=== PATIENT | male | born 1985 | race Caucasian/White ===

== ENCOUNTER 2023-03-30 12:00 | Outpatient (CLI) | payer MEDICAID ==
[2023-03-30 18:16] LABS: BASOPHILS % (AUTO) 0.4 %; EOSINOPHILS # (AUTO) 0.1 10^3/uL (0.0-0.7); EOSINOPHILS % (AUTO) 1.1 %; HCT - HEMATOCRIT 46.8 % (42.0-52.0); HGB - HEMOGLOBIN 15.7 g/dL (14.0-18.0); LYMPHOCYTES % (AUTO) 18.9 %; MEAN CORPUSCULAR HEMOGLOBIN 30.3 pg (27.0-31.0); MEAN CORPUSCULAR HGB CONC 33.5 g/dL (32.0-36.0); MEAN CORPUSCULAR VOLUME 90.3 fL (80.0-94.0); MEAN PLATELET VOLUME 9.1 fL (7.4-11.4); NEUTROPHILS # (AUTO) 7.5 10^3/uL (1.5-6.6); NEUTROPHILS % (AUTO) 70.3 %; RED BLOOD COUNT 5.18 10^6/uL (4.70-6.10); RED CELL DISTRIBUTION WIDTH 12.9 % (12.0-15.0); WHITE BLOOD COUNT 10.6 x10^3/uL (4.8-10.8)
[2023-03-30 18:23] LABS: SLIDE REVIEW? Indicated
[2023-03-30 18:55] LABS: ALBUMIN 4.3 g/dL (3.2-5.5); ALBUMIN/GLOBULIN RATIO 1.4 (1.0-2.2); BILIRUBIN,TOTAL 0.4 mg/dL (0.2-1.0); CALCIUM 9.5 mg/dL (8.5-10.3); CREATININE 0.8 mg/dL (0.6-1.3); POTASSIUM 4.1 mmol/L (3.5-4.5); TOTAL PROTEIN 7.4 g/dL (6.4-8.9)
[2023-03-30 19:30] LABS: PLATELET MORPHOLOGY PLATELET CLUMPING (NORMAL)
[2023-03-30 19:31] LABS: PLATELET ESTIMATE, MANUAL NORMAL (130-450,000) (NORMAL)
== END 2023-03-30 12:15 | disposition home or self-care (01) ==
LOC: LAB.N 12:00
PROVIDERS: ATTEND Nurse Practitioner
DX: L03.116 Cellulitis of left lower limb (principal)
CPT/HCPCS: 36415; 80053; 85025; 85379

== ENCOUNTER 2023-08-12 17:01 | Emergency (ER) | payer MEDICAID ==
--- NOTE | 2023-08-12 19:09 | ED Physician Documentation ---
History of Present Illness - Stated complaint Stated Complaint: R ANKLE SWELLING - Chief complaint Chief Complaint: Ext Problem - History obtained from History obtained from: Patient - History of Present Illness Pain level max: 3 Pain level now: 3 - Additonal information Additional information: Patient is a 38-year-old male who presents to the emergency department complaining of swelling in the right lower extremity ongoing for the past several days. He does use IV methamphetamines. He also smokes tobacco. No pain. Improves with elevation, worse with walking. Has not had similar symptoms previously. No fevers. No chills. Patient states that he does walk several miles daily, does not recall any specific injury. Review of Systems Constitutional: denies: Fever, Chills Respiratory: denies: Cough GI: denies: Vomiting, Diarrhea Skin: denies: Rash Musculoskeletal: denies: Neck pain, Back pain Neurologic: denies: Headache PD PAST MEDICAL HISTORY - Past Medical History Cardiovascular: None Respiratory: None Endocrine/Autoimmune: None GI: None : None HEENT: None Psych: None, Other Musculoskeletal: None Derm: None - Past Surgical History Past Surgical History: No - Present Medications Home Medications: Ambulatory Orders Medication Instructions Recorded Confirmed cephALEXin [Keflex] 500 mg PO Q6H #28 cap 05/21/22 - Allergies Allergies/Adverse Reactions: Allergies Allergy/AdvReac Type Severity Reaction Status Date / Time Sulfa (Sulfonamide AdvReac Rash Verified 05/21/22 19:39 Antibiotics) sulfa AdvReac itching/ Uncoded 05/21/22 19:39 rash - Social History Does the pt smoke?: Yes Smoking Status: Current every day smoker Does the pt drink ETOH?: No Does the pt have substance abuse?: Yes - Immunizations Immunizations are current?: Yes - POLST Patient has POLST: No PD ED PE NORMAL - Vitals Vital signs reviewed: Yes - General General: Alert and oriented X 3, No acute distress - HEENT HEENT: Moist mucous membranes - Neck Neck: Supple, no meningeal sign - Derm Derm: Warm and dry - Extremities Extremities: Other (Mild swelling to the right ankle, especially the lateral a spect. No erythema. No crepitus. No calf tenderness or cord. Mild swelling to the dorsum of the right foot. Neurovascular intact. No bony tenderness over the lower extremity including foot and ankle.) - Neuro Neuro: Alert and oriented X 3 Results - Vitals Vitals: Vital Signs - 24 hr 08/12/23 08/12/23 17:13 21:16 Temperature 36.1 C L Heart Rate 90 88 Respiratory 16 18 Rate Blood Pressure 147/91 H 156/89 H O2 Saturation 100 98 Oxygen O2 Source Room air - Rads (name of study) Right ankle x-ray Relevant Findings:: Final report received, See rad report Right lower extremity duplex ultrasound Relevant Findings:: Final report received, See rad report PD Medical Decision Making - ED course Complexity details: reviewed results, re-evaluated patient, considered differential, d/w patient ED course: 38-year-old male presents to the emergency department with right ankle swelling. Does not recall any injury. X-ray and ultrasound are both consistent with possible ankle sprain. Placed in a gel splint for comfort. Declines any crutches or pain medication. No signs of infection. No evidence of septic joint. We will have him follow-up with his PCP for further care. No DVT on ult rasound. Patient counseled regarding signs and symptoms for which I believe and urgent re-evaluation would be necessary. Patient with good understanding of and agreement to plan and is comfortable going home at this time This document was made in part using voice recognition software. While efforts are made to proofread this document, sound alike and grammatical errors may occur. Departure - Departure Disposition: 01 Home, Self Care Clinical Impression: Right ankle sprain Qualifiers: Encounter type: initial encounter Involved ligament of ankle: unspecified ligament Qualified Code(s): S93.401A - Sprain of unspecified ligament of right ankle, initial encounter Condition: Good Instructions: ED Sprain Ankle W X Ray Follow-Up: [facility] [Provider Group] [facility] [Provider Group] [facility] [Provider Group] [facility] [Provider Group] Comments: I would recommend using the Aircast to help support your ankle until it is healed. Please elevate your leg whenever possible. It does appear that you have fluid near the outside of your ankle joint that is consistent with a sprain or potentially an overuse injury. There are no abnormalities such as a blood clot on ultrasound. There is no fracture on x-ray. Forms: PCP List Discharge Date/Time: 08/12/23 21:18
--- NOTE | 2023-08-12 19:50 | XRAY Report ---
PROCEDURE: Ankle 3 View RT INDICATIONS: R ankle swelling TECHNIQUE: 3 views of the ankle were acquired. COMPARISON: None. FINDINGS: Bones: No fractures or dislocations. Ankle mortise is normally aligned. Small plantar calcaneal sp ur. No suspicious bony lesions. Soft tissues: Swelling at the lateral malleolus. No tibiotalar joint effusion. Achilles tendon appe ars normal. IMPRESSION: No fracture demonstrated. Swelling at the lateral malleolus suggesting sprain. Consider follow-up radiographs in 10-14 days. Reviewed by: Vahid Andujar MD on 08/12/2023 7:49 PM PST Approved by: Vahid Andujar MD on 08/12/2023 7:49 PM PST Station ID: [id number]
--- NOTE | 2023-08-12 21:12 | Ultrasound Report ---
PROCEDURE: Duplex Ext Veins Right INDICATIONS: RLE swelling TECHNIQUE: Real-time imaging, as well as color and pulse Doppler interrogation, were performed of the lower extr emity deep veins from the inguinal ligament to the popliteal fossa. Attempted visualization of the ca lf veins was performed. COMPARISON: None. FINDINGS: The deep veins are normally compressible, and free of intraluminal thrombus. Color and pu lse Doppler demonstrate normal phasic intraluminal flow. There is normal augmentation response to di stal compression maneuver. Edema is noted. More focal fluid pockets in the region of the ankle measuring 2.6 x 1.4 cm and 2.1 x 2.1 cm, sterility indeterminate. Incidentally noted prominent right groin lymph nodes, measuring up to 1 cm in AP dimension. IMPRESSION: No deep venous thrombosis of the visualized lower extremity. Reviewed by: Wesley Doran MD on 08/12/2023 9:11 PM PST Approved by: Wesley Doran MD on 08/12/2023 9:11 PM PST Station ID: [id number]
[2023-08-12 21:25] VITALS: BP 156/89; O2SAT 98
== END 2023-08-12 21:18 | disposition home or self-care (01) ==
LOC: ED 17:01
DX: S93.401A Sprain of unspecified ligament of right ankle, initial encounter (principal); X58.XXXA Exposure to other specified factors, initial encounter; F17.200 Nicotine dependence, unspecified, uncomplicated
CPT/HCPCS: 99283; 99284

== ENCOUNTER 2023-09-27 19:04 | Emergency (ER) | payer MEDICAID ==
[2023-09-27 19:16] VITALS: BP 150/100; O2SAT 100
[2023-09-27] MEDS ORDERED: AMOX/CLAV 875 MG/125 MG TABLET PO STA (19:21)
[2023-09-27] MEDS ORDERED: BUFFERED LIDOCAINE 10 ML SYRINGE SUBQ STA (19:21)
--- NOTE | 2023-09-27 19:22 | ED Physician Documentation ---
History of Present Illness - Stated complaint Stated Complaint: MOUTH PX,L SIDE FACIAL SWELLING - Chief complaint Chief Complaint: Heent - History obtained from History obtained from: Patient - Additonal information Additional information: He broke a tooth couple of days ago and then put a temporary filling on it, and then subsequently it got very swollen and painful. No fevers. It has been years since he saw dentist. PD PAST MEDICAL HISTORY - Past Medical History Cardiovascular: None Respiratory: None Endocrine/Autoimmune: None GI: None : None HEENT: None Psych: None, Other Musculoskeletal: None Derm: None - Past Surgical History Past Surgical History: No - Present Medications Home Medications: Ambulatory Orders Medication Instructions Recorded Confirmed cephALEXin [Keflex] 500 mg PO Q6H #28 cap 05/21/22 Amox/Clav 875/125 [Augmentin] 1 each PO Q12H #20 tablet 09/27/23 Oxycodone HCl/Acetaminophen 1 - 2 each PO Q6H PRN #14 tablet 09/27/23 [Percocet 5-325 mg Tablet] - Allergies Allergies/Adverse Reactions: Allergies Allergy/AdvReac Type Severity Reaction Status Date / Time Sulfa (Sulfonamide AdvReac Rash Verified 05/21/22 19:39 Antibiotics) sulfa AdvReac itching/ Uncoded 05/21/22 19:39 rash - Social History Does the pt smoke?: Yes Smoking Status: Current every day smoker Does the pt drink ETOH?: No Does the pt have substance abuse?: Yes - Immunizations Immunizations are current?: Yes - POLST Patient has POLST: No PD ED PE NORMAL - Vitals Vital signs reviewed: Yes - General General: Alert and oriented X 3, No acute distress - HEENT HEENT: Other (Temporary filling and a cavity in the second to last left m andibular molar with overlying swelling and a possible buccal abscess. No sublingual edema or trismus.) - Neck Neck: Supple, no meningeal sign, No bony TTP - Neuro Neuro: Alert and oriented X 3 Results - Vitals Vitals: Vital Signs - 24 hr 09/27/23 19:09 Temperature 36.7 C Heart Rate 100 Respiratory 18 Rate Blood Pressure 150/100 H O2 Saturation 100 Oxygen O2 Source Room air Procedures - General procedure General procedure: After discussion he would like to go ahead with an attempted I&D of what is an apparent buccal abscess. The area was infiltrated locally with buffered lidocaine with good anesthesia and then an 18-gauge needle was inserted but there was no purulent return suggesting phlegmon as opposed to abscess. No sign of Prosper's angina at this time. Departure - Departure Disposition: 01 Home, Self Care Clinical Impression: Dental infection Condition: Good Record reviewed to determine appropriate education?: Yes Instructions: ED Dental Abscess Facial Cellulitis Follow-Up: [facility] [Physician No Access] - Prescriptions: Amox/Clav 875/125 [Augmentin] 1 each PO Q12H #20 tablet Oxycodone HCl/Acetaminophen [Percocet 5-325 mg Tablet] 1 - 2 each PO Q6H PRN #14 tablet PRN Reason: pain Comments: I sent your prescription electronically to [facility] in [place]. It is very important that you follow-up with a dentist. When it comes to dental problems like yours, the emergency department can only offer a short-term solution to your long-term problem. A couple of low cost options for dental care include: [facility] in [place], calls [phone] for an appointment Or [facility] in [place], call [phone] for an appointment. I am prescribing a short course of narcotic pain medication for you. These are potentially dangerous and addictive medications that should be used carefully. These medications may constipate you. Take an hanm-sfl-pzxvodl stool softener (docusate) twice daily with plenty of water while taking these medications. If y ou go 24 hours without a bowel movement, take [id number]-[id number] miralax, per package instructions. Do not drink or drive while taking these medications. If you received narcotic or sedating medications while in the emergency department, do not drive for 24 hours. Store this medication in a safe, secure place and out of reach of children. It is a violation of federal law to give or sell this medication to another person or to use in a manner other than prescribed. The ED will not refill narcotic prescriptions, including prescriptions lost or stolen. To dispose of unwanted medications: 1. [facility] provides a drop box for medication in pill form only (no liquids) 8:00 am to 4:30 p.m. Thursday-Thursday in the lobby of the [facility], [address] [place] [address]. Empty pills into ziplock bag before disposal. Call [phone] for information. 2.[employer] is a free service available to all [facility] residents. Go to [email or web address] Note that many narcotic pain relievers also contain Tylenol/acetaminophen. Please ensure that your total dose of acetaminophen from all sources does not exceed 3 g (3000 mg) per day. Forms: PCP List
[2023-09-27] MEDS ORDERED: oxyCODONE/ACET 5/325 Prepack 4 PO STA (19:26)
== END 2023-09-27 19:45 | disposition home or self-care (01) ==
LOC: ED 19:04
DX: K04.7 Periapical abscess without sinus (principal); F17.200 Nicotine dependence, unspecified, uncomplicated
CPT/HCPCS: 41800; 99282; 99283; A9270

== ENCOUNTER 2024-04-19 17:36 | Emergency (ER) | payer MEDICAID ==
[2024-04-19 18:35] VITALS: BP 152/87; O2SAT 99
--- NOTE | 2024-04-19 19:12 | ED Physician Documentation ---
PD HPI LOWER EXT INJURY - Stated complaint Stated Complaint: LT LEG PX - Chief complaint Chief Complaint: Ext Problem - Additional information Additional information: 39-year-old male presents emerged department for left lower extremity blister. Patient says that he originally noticed this about a week ago But the blister has gotten bigger and deeper. Patient denies any fevers or chills he does endorse and frequent methamphetamine injection and says that he knows he needs to quit but has not been able to. He is unsure if he has diabetes as he has not been established with a primary care provider in quite some time but says that his roommate has a glucometer and checks his blood sugar at home and it does read high over 200s frequently. PD PAST MEDICAL HISTORY - Past Medical History Cardiovascular: None Respiratory: None Endocrine/Autoimmune: None GI: None : None HEENT: None Psych: None, Other Musculoskeletal: None Derm: None - Past Surgical History Past Surgical History: No - Present Medications Home Medications: Ambulatory Orders Medication Instructions Recorded Confirmed No Known Home Medications 04/19/24 04/19/24 - Allergies Allergies/Adverse Reactions: Allergies Allergy/AdvReac Type Severity Reaction Status Date / Time Sulfa (Sulfonamide AdvReac Rash Verified 04/19/24 18:23 Antibiotics) sulfa AdvReac itching/ Uncoded 04/19/24 18:23 rash - Social History Does the pt smoke?: Yes Smoking Status: Current every day smoker Does the pt drink ETOH?: No Does the pt have substance abuse?: Yes Substance Use and Type: Meth - Immunizations Immunizations are current?: Yes - POLST Patient has POLST: No PD ED PE NORMAL - Vitals Vital signs reviewed: Yes - General General: Alert and oriented X 3, No acute distress, Well developed/nourished - Derm Derm: Other (two blisters to left calf, one appears superfical, the other more deep, no purulent drainage, no erythema) - Extremities Extremities: Other (bilateral non pitting edema mostly to right ankle) - Psych Psych: Normal mood, Normal affect Results - Vitals Vitals: Oxygen O2 Source Room air PD Medical Decision Making - ED course ED course: 39-year-old male presents emergency department for 2 blisters to his left calf. Patient does endorse and daily frequent IV methamphetamine. Patient says he also has been having bilateral lower extremity swelling he has already had a venous duplex on his right lower extremity there was no DVT. He says that the swelling is mostly to his right ankle, no calf tenderness no pitting edema. Patient was given a one-time dose of oral Lasix here in the emergency department and I referral was sent to Ortho for the patient to have further evaluation of why he is having localized swelling just to his ankle as he was also told to start wearing MARTIN hose daily and keep his feet elevated as often as possible. The blisters that the patient was worried about do not appear to be infected patient was told how to manage these wounds at home return precautions given I do not see any indication to start patient on antibiotics. It was stressed to the patient that he needs to stop using methamphetamine or these blisters are going to continue to come back as well as get worse. He is told to follow-up with his primary care provider for further evaluation and possible Lasix prescription for his lower extremity swelling. All questions answered return precautions given signs symptoms of infection talked to patient patient is safe for discharge at this time. Departure - Departure Disposition: 01 Home, Self Care Clinical Impression: Ankle swelling, Venous stasis, Methamphetamine abuse, Venous ulcer of left leg Instructions: ED Drug Abuse General Comments: Thank you for trusting us with your care. Is very important that you quit using IV meth. You will continue to have these wounds on your leg and they will continue to get worse. You likely also have type 2 diabetes that is undiagnosed which is causing venous stasis and these venous ulcers on your legs. Get some MARTIN hose that go all the way to your knee gets out with a primary care provider soon as possible so you can have further evaluation and management of these chronic issues. I have also referred you to an Ortho doctor outpatient so you can have your ankle swelling further investigated. Please come back in if you have any chest pain, shortness of breath fevers or chills or any other worsening symptoms. Keep that ulcer packed with gauze change at 1-2 times a day until it heals. Come back in if you are noticing any signs and symptoms of infection which include fevers chills redness swelling or drainage that is yellow or green. Forms: PCP List Discharge Date/Time: 04/19/24 19:45
[2024-04-19] MEDS: FUROSEMIDE 20 MG TABLET PO STA (19:33)
== END 2024-04-19 19:45 | disposition home or self-care (01) ==
LOC: ED 17:36
DX: I83.022 Varicose veins of left lower extremity with ulcer of calf (principal); I87.8 Other specified disorders of veins; M79.89 Other specified soft tissue disorders; F15.10 Other stimulant abuse, uncomplicated; F17.200 Nicotine dependence, unspecified, uncomplicated
CPT/HCPCS: 99283; A9270